=== PATIENT | female | born 1960 | race Caucasian/White ===

== ENCOUNTER 2023-05-12 00:14 | Inpatient (IN) | payer MEDICAID, OTHER ==
[~2023-05-12] VITALS: Ht 162.6 cm; Wt 77.5 kg
[2023-05-12 00:35] VITALS: PULSE 90; RESP 18; O2SAT 96
[2023-05-12 00:59] LABS: Basophils # (auto) 0 10 ^3/uL (0-0.2); Basophils % (auto) 0.5 % (0.0-2.0); Eosinophils # (auto) 0.1 10 ^3/uL (0-0.8); Eosinophils % (auto) 1.9 % (0.0-7.0); Hematocrit 30.7 % (36.0-46.0); Hemoglobin 10.4 g/dL (12.2-16.2); Lymphocytes # (auto) 1.1 10 ^3/uL (0.4-5.4); Lymphocytes % (auto) 18.7 % (10.0-50.0); Mean Corpuscular Hemoglobin 31.6 pg (28.0-32.0); Mean Corpuscular Hgb Conc. 33.8 g/dL (32.0-36.0); Mean Corpuscular Volume 93.3 fL (80.0-100.0); Monocytes # (auto) 0.6 10 ^3/uL (0-1.3); Neutrophils # (auto) 4.1 10 ^3/uL (1.6-8.6); Neutrophils % (auto) 68.9 % (37.0-80.0); Nucleated Red Blood Cells % 0.1 %; Red Blood Cells 3.29 10^6/uL (4.0-5.20); Red Cell Distribution Width 13.8 % (11.8-14.3)
[2023-05-12 01:10] LABS: Alanine Aminotransferase 22 U/L (7-40); Albumin 3.9 g/dL (3.2-4.8); Alkaline Phosphatase 66 U/L (46-116); Anion Gap 5 (5-15); Aspartate Aminotransferase 24 U/L (13-40); BUN/Creatinine Ratio 13.1 (10.0-20.0); Blood Urea Nitrogen 13 mg/dL (9-23); Calcium 8.9 mg/dL (8.7-10.4); Carbon Dioxide 28 mmol/L (20-30); Chloride 107 mmol/L (98-107); Glucose 107 mg/dL (74-106); Magnesium 1.9 mg/dL (1.6-2.6); Potassium 3.5 mmol/L (3.5-5.1); Sodium 140 mmol/L (136-145)
[2023-05-12 01:11] LABS: Bilirubin, Total 0.3 mg/dL (0.2-1.0); Total Protein 6.1 g/dL (5.7-8.2)
[2023-05-12 01:12] LABS: INR 1.31 (0.9-1.15); Partial Thromboplastin Time 39.1 SEC (24.5-34.5); Prothrombin Time 13.5 sec (9.3-11.8)
[2023-05-12] MEDS ORDERED: SILDENAFIL CITRATE 20 MG TAB PO ONE ×3 (03:30→10:45)
[2023-05-12 03:47] LABS: Urine Bacteria FEW /hpf (None Seen); Urine Blood Negative /uL (Negative); Urine Clarity Clear (Clear); Urine Color Yellow (Yellow); Urine Hyaline Cast FEW /lpf (0 - 2); Urine Mucus FEW (None Seen); Urine Protein, UAD Negative (Negative); Urine Specific Gravity 1.018 (1.001-1.035); Urine Urobilinogen Normal (Negative); Urine WBC 60 /hpf (0 - 5)
[2023-05-12] MEDS ORDERED: HYDROcodone-ACET 5/325MG TAB PO PRN (06:00)
[2023-05-12] MEDS ORDERED: NITROGLYCERIN 0.4 MG SL TAB SL PRN (06:00)
[2023-05-12] MEDS ORDERED: MORPHINE SULFATE INJ 2 MG/ml SYRG IV PRN (06:00)
[2023-05-12] MEDS ORDERED: levoFLOXacin 500MG 100 ML IV ONE (06:00)
[2023-05-12] MEDS ORDERED: POTASSIUM CHL 20 Meq TABLET PO ONE (06:00)
[2023-05-12] MEDS ORDERED: DOCUSATE SOD 100 MG CAP PO PRN (06:00)
[2023-05-12] MEDS ORDERED: ACETAMINOPHEN 325 MG TAB PO PRN (06:00)
[2023-05-12] MEDS ORDERED: ONDANSETRON HCL 4 MG/2 ML VIAL IV PRN (06:00)
[2023-05-12] MEDS: SODIUM CHLOR 0.9% PF (SALINE LOCK) 10ML VIAL/SYR IV SCH ×2 (06:21→14:00)
[2023-05-12 07:02] LABS: Basophils # (auto) 0 10 ^3/uL (0-0.2); Basophils % (auto) 0.6 % (0.0-2.0); Eosinophils # (auto) 0.1 10 ^3/uL (0-0.8); Eosinophils % (auto) 1.9 % (0.0-7.0); Hematocrit 29.6 % (36.0-46.0); Hemoglobin 9.9 g/dL (12.2-16.2); Mean Corpuscular Hemoglobin 31.3 pg (28.0-32.0); Mean Corpuscular Hgb Conc. 33.6 g/dL (32.0-36.0); Monocytes # (auto) 0.6 10 ^3/uL (0-1.3); Monocytes % (auto) 11.2 % (0.0-12.0); Neutrophils # (auto) 3.3 10 ^3/uL (1.6-8.6); Neutrophils % (auto) 66.3 % (37.0-80.0); Red Blood Cells 3.18 10^6/uL (4.0-5.20); Red Cell Distribution Width 13.6 % (11.8-14.3); White Blood Cell 4.9 10^3/uL (4.4-10.8)
[2023-05-12 07:20] LABS: Alanine Aminotransferase 20 U/L (7-40); Albumin 3.7 g/dL (3.2-4.8); Alkaline Phosphatase 59 U/L (46-116); Anion Gap 4 (5-15); Aspartate Aminotransferase 16 U/L (13-40); BUN/Creatinine Ratio 12.1 (10.0-20.0); Blood Urea Nitrogen 11 mg/dL (9-23); Calcium 8.8 mg/dL (8.7-10.4); Carbon Dioxide 30 mmol/L (20-30); Chloride 107 mmol/L (98-107); Glucose 118 mg/dL (74-106); Potassium 3.7 mmol/L (3.5-5.1); Sodium 141 mmol/L (136-145)
[2023-05-12 07:21] LABS: Bilirubin, Total 0.4 mg/dL (0.2-1.0); Total Protein 5.8 g/dL (5.7-8.2)
[2023-05-12 07:38] LABS: Cholesterol 186 mg/dL (< 200); HDL Cholesterol 55 mg/dL (40-59); LDL Cholesterol 116 mg/dL (< 100); Triglycerides 87 mg/dL (< 150)
[2023-05-12 09:30] VITALS: BP 111/56; PULSE 75; RESP 16; RESP 20; TEMP 97.7; O2SAT 94; O2SAT 96
[2023-05-12] MEDS ORDERED: FUROSEMIDE 40 MG TAB PO ONE (09:30)
[2023-05-12] MEDS ORDERED: ATORVASTATIN 20 MG TAB PO SCH ×2 (09:45→22:00)
[2023-05-12] MEDS ORDERED: POTASSIUM EFFERVESENT TAB 25 MEQ GT SCH (10:00)
[2023-05-12] MEDS ORDERED: ASPirin 81 mg TAB PO SCH (10:00)
[2023-05-12] MEDS ORDERED: FURO1TAB33 PO (10:07)
[2023-05-12] MEDS ORDERED: ALBUAER3 IN (10:07)
[2023-05-12] MEDS ORDERED: SILD50TA42 PO (10:07)
[2023-05-12] MEDS ORDERED: RIVA10TA PO (10:07)
[2023-05-12] MEDS ORDERED: FURO1TAB31 PO (10:07)
[2023-05-12] MEDS ORDERED: FOLI-119 PO (10:07)
[2023-05-12] MEDS ORDERED: METH2.5T62 PO (10:07)
[2023-05-12] MEDS ORDERED: POTA10TA51 PO (10:07)
[2023-05-12] MEDS ORDERED: MACI1TAB2 PO (10:07)
[2023-05-12] MEDS ORDERED: ADAL40IN SC (10:07)
[2023-05-12 10:16] VITALS: BP 111/56; PULSE 68; RESP 12; O2SAT 96
[2023-05-12] MEDS ORDERED: METOPROLOL TARTRATE 25 MG TAB PO ONE (11:30)
[2023-05-12 13:50] VITALS: BP 93/43; PULSE 77; TEMP 98.2
[2023-05-12] MEDS ORDERED: SILD20TA PO (15:44)
[2023-05-12] MEDS ORDERED: FUROSEMIDE 40 MG TAB PO SCH (18:00)
[2023-05-12] MEDS ORDERED: SILDENAFIL CITRATE 20 MG TAB PO SCH (20:00)
[2023-05-12] MEDS ORDERED: METOPROLOL TARTRATE 25 MG TAB PO SCH (22:00)
[2023-05-13] MEDS ORDERED: levoFLOXacin 500MG 100 ML IV SCH (10:00)
== END 2023-05-12 16:00 | disposition home or self-care (01) | DRG 201 ==
LOC: ER 00:14 → EDBD 00:14 → TELE 06:03 → TELE-WESTW 08:48
PROVIDERS: ADMIT Nurse Practitioner Family; ATTEND Nurse Practitioner Acute Care
DX: I47.1 Supraventricular tachycardia (principal); J96.21 Acute and chronic respiratory failure with hypoxia; I21.A1 Myocardial infarction type 2; I95.9 Hypotension, unspecified; I27.29 Other secondary pulmonary hypertension; I50.9 Heart failure, unspecified; Z79.01 Long term (current) use of anticoagulants; I49.3 Ventricular premature depolarization; R26.81 Unsteadiness on feet; N39.0 Urinary tract infection, site not specified; Z83.3 Family history of diabetes mellitus; Z91.012 Allergy to eggs; Z91.018 Allergy to other foods
CPT/HCPCS: 36415; 71045; 80053; 80061; 81001; 83735; 83880; 84484; 85025; 85610; 85730; 93005; 96365; 99291; G0378; J1956

== ENCOUNTER 2023-09-03 07:03 | Day surgery (SDC) | payer MEDICAID ==
[~2023-09-03] VITALS: Ht 154.9 cm; Wt 76.2 kg
[~2023-09-03 07:03] MED LIST: ADAL40IN SC; ALBUAER3 IN; CARV6.2551 PO; FOLI-119 PO; FURO1TAB31 PO; MACI1TAB2 PO; METH2.5T62 PO; POTA10TA51 PO; RIVA10TA PO; SILD20TA PO
[2023-09-03] MEDS ORDERED: MIDAZOLAM HCL 2MG/2ML 2ml VIAL (1mg/ml) IV ONE (08:30)
[2023-09-03] MEDS ORDERED: fentaNYL CITRATE 100 MCG/2 ML VL IV ONE (08:30)
[2023-09-03] MEDS ORDERED: LIDOCAINE VISCOUS 2% 15ML UD PO ONE (08:30)
[2023-09-03 10:04] VITALS: BP 115/62; PULSE 90; RESP 17; O2SAT 94
[2023-09-03 10:20] VITALS: BP 105/35; PULSE 67; RESP 14; O2SAT 95
[2023-09-03 10:35] VITALS: BP 103/50; PULSE 67; RESP 14; O2SAT 96
[2023-09-03 10:49] VITALS: BP 109/40; PULSE 67; RESP 15; O2SAT 99
== END 2023-09-03 11:00 | disposition home or self-care (01) ==
LOC: CATH 07:03
PROVIDERS: ATTEND Internal Medicine
DX: Q21.10 Atrial septal defect, unspecified (principal); I50.812 Chronic right heart failure
CPT/HCPCS: 93312; J2250; J3010; 93005; 99152